=== PATIENT | male | born 1965 | race Caucasian/White ===

== ENCOUNTER 2018-08-28 10:50 | Emergency (ER) | payer OTHER ==
[~2018-08-28] VITALS: Ht 175.3 cm; Wt 81.7 kg
[2018-08-28] MEDS ORDERED: IBUPROFEN 600600 M1 PO (12:32)
[2018-08-28 12:45] VITALS: BP 132/75
== END 2018-08-28 12:45 | disposition home or self-care (01) ==
LOC: M.ERS 10:50
DX: M77.9 Enthesopathy, unspecified (principal); F17.210 Nicotine dependence, cigarettes, uncomplicated